=== PATIENT | male | born 1955 | race Caucasian/White ===

== ENCOUNTER → 2023-07-08 13:20 | Outpatient (CLI) | payer MEDICARE, OTHER, SELFPAY ==
--- NOTE | ~2023-07-08 | MR_ITS ---
MRI of the lumbar spine Clinical History: Radiculopathy Technique: Axial T2-weighted images, and sagittal T1-weighted, T2-weighted, and T2 fat-sat images wer e acquired. Findings: There is no fracture or subluxation of the lumbar spine. Vertebral bodies maintain normal h eight and alignment. No suspicious bone marrow signal abnormality seen. At L1-L2, there is mild degenerative disc narrowing. Disc bulge and advanced facet arthropathy result in moderate to severe spinal canal stenosis/thecal sac compression. There is moderate to severe bila teral neural foraminal narrowing. At L2-L3, there is mild to moderate degenerative disc narrowing. There is central disc protrusion sup erimposed upon mild disc bulge, with mild facet arthropathy. There is moderate to severe central roly l stenosis/thecal sac compression. There is severe bilateral neural foraminal narrowing. At L3-L4, there is mild to moderate degenerative disc narrowing. Diffuse disc bulge and advanced face t arthropathy result in severe spinal canal stenosis/thecal sac compression. There is severe bilatera l neural foraminal narrowing. At L4-L5, disc bulge and severe facet arthropathy result in severe spinal canal stenosis/thecal sac c ompression. There is severe bilateral neural foraminal narrowing. At L5-S1, there is mild disc bulge with severe facet arthropathy. No malachi central canal stenosis. Th ere is severe bilateral neural foraminal narrowing. Paravertebral soft tissues are unremarkable. Impression: Severe degenerative spondylosis throughout the lumbar spine, as detailed above. There is multilevel m oderate to severe spinal canal stenosis and severe neural foraminal narrowing. Reviewed, dictated and finalized at location M. Impression: Severe degenerative spondylosis throughout the lumbar spine, as detailed above. There is multilevel moderate to severe spinal canal stenosis and severe neural foraminal narrowing.
== END ==
PROVIDERS: PCP Anesthesiology; Visit Provider Anesthesiology
DX: M47.26 Other spondylosis with radiculopathy, lumbar region (principal)
CPT/HCPCS: 72148